=== PATIENT | male | born 1970 | race Caucasian/White ===

== ENCOUNTER 2020-11-28 09:12 | Outpatient (NON) | payer OTHER, SELFPAY ==
[2020-11-28 17:11] LABS: SARS-CoV-2 RNA PCR Negative
== END 2020-11-28 09:13 ==
PROVIDERS: Visit Provider Student in an Organized Health Care Education/Training Program
DX: J32.9 Chronic sinusitis, unspecified (principal); Z20.828 Contact with and (suspected) exposure to other viral communicable diseases
CPT/HCPCS: 87635; C9803; U0003

== ENCOUNTER → 2021-09-08 09:10 | Outpatient (CLI) | payer OTHER, SELFPAY ==
--- NOTE | ~2021-09-08 | MR_ITS ---
EXAMINATION: MR foot RT wo con DATE: 09/08/2021 10:19 INDICATION: Acute right foot osteomyelitis with chronic at the great toe. TECHNIQUE: Magnetic resonance imaging (MRI) of the right fore/mid foot was performed without intraven ous contrast. Sequences included axial, sagittal and coronal T1-weighted FSE, sagittal fluid sensitiv e FSE STIR and axial and coronal T2-weighted FS FSE. COMPARISON: None FINDINGS: Mild hallux valgus. No fracture. Mild polyarticular osteoarthritis at the first metatarsophalangeal a nd several tarsal metatarsal and interphalangeal joints. Mild subarticular edema along the inter sesa moid ridge at the plantar aspect of the head of the first metatarsal. Fluid signal intensity intraoss eous cystic change versus erosions at the medial aspect of the head of the first metatarsal with loca tion and appearance suggesting either a bunion or erosions related to gout. Otherwise normal bone mar row signal. No fracture, reactive edema, osteolysis or other pathologic marrow replacing process. Sof t tissue swelling with blisterlike crescentic region of fluid underlying the skin surface at the medi al/plantar aspect of the left great toe. The visualized portion of the flexor and extensor tendons ar e normal. The Lisfranc ligament complex as well as the collateral ligament complex at the metatarsoph alangeal and interphalangeal joints are normal. No joint effusions, bursitis, tenosynovitis or other abnormal fluid collections aside from the previous noted small subdermal collection at the great toe. IMPRESSION: 1. Small blisterlike lesion near the skin surface at the plantar/medial aspect of the great toe. No d eeper abscess or osteomyelitis. 2. Mild polyarticular osteoarthritis at the mid and forefoot. 3. Cystic versus erosive change at the medial head of the first metatarsal which could be related to hallux valgus and bunion formation or erosions such as in the setting of gout. Reviewed, dictated and finalized at location A. IMPRESSION: 1. Small blisterlike lesion near the skin surface at the plantar/medial aspect of the great toe. No deeper abscess or osteomyelitis. 2. Mild polyarticular osteoarthritis at the mid and forefoot. 3. Cystic versus erosive change at the medial head of the first metatarsal whic h could be related to hallux valgus and bunion formation or erosions such as in the setting of gout.
== END ==
PROVIDERS: Visit Provider Podiatrist Foot & Ankle Surgery
DX: M86.171 Other acute osteomyelitis, right ankle and foot (principal); M19.071 Primary osteoarthritis, right ankle and foot
CPT/HCPCS: 73718

== ENCOUNTER 2023-03-16 10:26 | Emergency (ER) | payer OTHER, SELFPAY ==
--- NOTE | ~2023-03-16 | XR_ITS ---
EXAMINATION: XR knee LT min 4V DATE: 03/16/2023 11:09 INDICATION: Pain and swelling of the knee TECHNIQUE: Four views of the left knee were obtained. COMPARISON: None. FINDINGS: Alignment is normal. No fracture or osteochondral lesion. There is mild tricompartmental os teoarthritis characterized by tiny marginal osteophytes. No joint effusion/synovitis. There are a mo derate amount of medial soft tissue swelling adjacent to the knee and proximal tibia. IMPRESSION: 1. Soft tissue swelling without acute osseous abnormality. Reviewed, dictated and finalized at location A.
[2023-03-16 10:39] VITALS: BP 158/102; PULSE 94; RESP 16; TEMP 36.4; O2SAT 100
[2023-03-16 10:41] VITALS: BP 158/102; PULSE 94; RESP 16; TEMP 36.4; O2SAT 100
--- NOTE | 2023-03-16 10:52 | ED.LOWEXIN ---
HPI - Extremity Injury (Lower) General Chief Complaint: Extremity Injury, Lower Stated Complaint: Left Leg Pain Source: patient and RN notes reviewed History of Present Illness HPI Narrative: 53-year-old male presents to urgent care with a sitter at side. Patient states yesterday he was lifting a concrete cylinder when he fell backwards and the cylinder landed on his left leg. patient states he was able to walk and did not have much pain after the incident, however, after he sat down while the swelling increased. Patient states he rested and iced the area last night and the swelling has improved since. Denies any numbness, tingling, or any other complaints. Some parts of this dictation were generated by voice recognition software and may contain typographical and/or grammatical inaccuracies. Related Data Home Medications Medication Instructions Recorded Confirmed aspirin 325 mg tablet 325 mg PO DAILY 03/16/23 03/16/23 atorvastatin 40 mg tablet mg 03/16/23 dapagliflozin 10 mg tablet mg 03/16/23 (Farxiga) metformin 500 mg tablet,extended mg PO 03/16/23 release 24 hr Allergies Allergy/AdvReac Type Severity Reaction Status Date / Time No Known Allergies Allergy Unknown Verified 03/16/23 10:40 Review of Systems Review of Systems: Pertinent positives and pertinent negatives per HPI. [facility] Family History Family History (System 06/20/20 @ 08:34 by Gian Jc) Mother Hypertension Family history of elevated blood lipids Family history of diabetes mellitus in first degree relative Grandparent Diabetes mellitus Father Family history of lung cancer Other Family history of type 2 diabetes mellitus Social History Social History (System 06/20/20 @ 08:34 by Gian Jc) Smoking status: Former smoker Alcohol intake: current Comments At the time of my signature, I reviewed and agree with the nursing past medical, surgical, social, and family history. There is no relevant family history pertinent to the patient complaint. Exam Narrative: GENERAL: This is a well-nourished, well-developed patient, in no apparent distress. HEAD: normocephalic, atraumatic. EYES: Sclera clear/white. Vision is grossly intact. EARS: External ears normal, auditory canals clear and without drainage. Hearing grossly intact. NOSE: External nose normal with no obvious nasal discharge, nares without redness, no rhinorrhea. THROAT: Mucous membranes moist, posterior pharynx clear. NECK: Neck supple, non-tender without lymphadenopathy, masses or thyromegaly. CARDIOVASCULAR: Regular rate RESPIRATORY: No respiratory distress SKIN: warm, intact with no suspicious lesions or rash, good texture and turgor. NEURO: awake, alert, and oriented to person, place and time. There were no obvious focal neurologic abnormalities. EXTREMITIES: No bony tenderness. Full ROM intact. No calf pain or tenderness. Swelling and bruising to left medial, proximal, lower leg. Course Course Level of Care: Express Care Visit Vital Signs Vital signs: Vital Signs Temperature 97.5 F L 03/16/23 10:39 Pulse Rate 94 03/16/23 10:39 Respiratory Rate 16 03/16/23 10:39 Blood Pressure 158/102 H 03/16/23 10:39 Pulse Oximetry 100 03/16/23 10:39 Oxygen Delivery Room Air 03/16/23 10:39 Temperature 97.5 F L 03/16/23 10:41 Pulse Rate 94 03/16/23 10:41 Respiratory Rate 16 03/16/23 10:41 Blood Pressure 158/102 H 03/16/23 10:41 Pulse Oximetry 100 03/16/23 10:41 Oxygen Delivery Room Air 03/16/23 10:41 reviewed MDM - Extremity Injury (Lower) MDM Narrative Medical decision making narrative: Discussed with patient the fact that he does not necessarily needed x-ray due to lack of bony tenderness and full range of motion, however, patient is requesting an x-ray. Use the RICE method at home. May take ibuprofen and/or Tylenol if needed. If symptoms persist in 1 week after conservative treatment, follow-up with primary
[2023-03-16 11:44] VITALS: BP 140/95
== END 2023-03-16 11:44 | disposition home or self-care (01) ==
PROVIDERS: Emergency Provider Nurse Practitioner Family; PCP Student in an Organized Health Care Education/Training Program
DX: S80.12XA Contusion of left lower leg, initial encounter (principal); Z79.82 Long term (current) use of aspirin; Z79.84 Long term (current) use of oral hypoglycemic drugs; Z87.891 Personal history of nicotine dependence; W20.8XXA Other cause of strike by thrown, projected or falling object, initial encounter
CPT/HCPCS: 73564; 99213; G0463